=== PATIENT | male | born 1990 | race Two or more races ===

== ENCOUNTER 2020-09-18 18:52 | Emergency (ER) | payer MEDICAID ==
[~2020-09-18] VITALS: Ht 175.3 cm; Wt 69.5 kg
[~2020-09-18 18:52] MED LIST: NO HOME MEDS
[2020-09-18 19:00] VITALS: BP 122/80
[2020-09-18] MEDS ORDERED: HYDR-3686 PO (19:41)
[2020-09-18] MEDS ORDERED: ONDA4TAB6 PO (19:41)
[2020-09-18] MEDS ORDERED: CLON-529 PO (19:41)
[2020-09-18] MEDS ORDERED: DICY10CA88 PO (19:41)
== END 2020-09-18 19:59 | disposition home or self-care (01) ==
LOC: ER 18:53
DX: F15.10 Other stimulant abuse, uncomplicated (principal); M79.641 Pain in right hand; F11.10 Opioid abuse, uncomplicated; Z79.899 Other long term (current) drug therapy
CPT/HCPCS: 73130; 99283

== ENCOUNTER 2021-08-18 02:05 | Emergency (ER) | payer MEDICAID ==
[~2021-08-18] VITALS: Ht 175.3 cm; Wt 65.0 kg
[~2021-08-18 02:05] MED LIST changes: +CLON-529 PO; +DICY10CA88 PO; +ONDA4TAB6 PO
[2021-08-18 02:11] VITALS: BP 131/89
[2021-08-18] MEDS ORDERED: CEPH-585 PO (04:09)
[2021-08-18] MEDS ORDERED: CLIN-97 PO (04:09)
[2021-08-18] MEDS ORDERED: clindamycin 150mg capsule PO ONE (04:10)
== END 2021-08-18 04:33 | disposition home or self-care (01) ==
LOC: ER 02:05
DX: L03.031 Cellulitis of right toe (principal); Z79.899 Other long term (current) drug therapy
CPT/HCPCS: 99283

== ENCOUNTER 2021-11-27 19:34 | Emergency (ER) | payer MEDICAID ==
[~2021-11-27] VITALS: Ht 175.3 cm; Wt 78.8 kg
[~2021-11-27 19:34] MED LIST changes: +CEPH-585 PO; +CLIN-97 PO
[2021-11-27] MEDS ORDERED: colchicine 0.6mg tablet PO ONE (20:30)
--- NOTE | 2021-11-27 20:30 | NUR ---
EVALUATED BY MD IN TRIAGE.
[2021-11-27 20:57] LABS: BASOPHILS # (AUTO) 0.1 X10'3 (0-0.2); BASOPHILS % (AUTO) 1.2 % (0-1); EOSINOPHILS # (AUTO) 0.2 X10'3 (0-0.9); EOSINOPHILS % (AUTO) 1.6 % (0-6); HEMATOCRIT 40.6 % (42.0-52.0); HEMOGLOBIN 13.9 g/dl (14.0-17.9); LYMPHOCYTES # (AUTO) 2.1 X10'3 (1.1-4.8); LYMPHOCYTES % (AUTO) 17.2 % (21-51); MEAN CORPUSCULAR HEMOGLOBIN 29.5 PG (27.0-31.0); MEAN CORPUSCULAR HGB CONC 34.3 g/dL (33.0-36.5); MONOCYTES # (AUTO) 0.9 X10'3 (0-0.9); MONOCYTES % (AUTO) 7.7 % (2-12); NEUTROPHILS # (AUTO) 8.7 X10'3 (1.8-7.7); NEUTROPHILS % (AUTO) 72.3 % (42-75); PLATELET COUNT 324 X10'3 (140-440); RED BLOOD COUNT 4.72 X10'6 (4.70-6.10); RED CELL DISTRIBUTION WIDTH 14.2 % (11.5-14.5)
[2021-11-27] MEDS ORDERED: amox tr/potassium clavulanate 875/125mg TAB PO ONE (21:05)
[2021-11-27] MEDS ORDERED: HYDR-3972 PO (22:04)
[2021-11-27] MEDS ORDERED: AMOX-422 PO (22:04)
== END 2021-11-27 23:59 | disposition home or self-care (01) ==
LOC: ER 19:35
DX: L03.116 Cellulitis of left lower limb (principal); F15.90 Other stimulant use, unspecified, uncomplicated; F11.90 Opioid use, unspecified, uncomplicated; Z79.2 Long term (current) use of antibiotics; Z79.899 Other long term (current) drug therapy
CPT/HCPCS: 36415; 73630; 85025; 99284

== ENCOUNTER 2022-08-31 10:49 | Emergency (ER) | payer MEDICAID ==
[~2022-08-31] VITALS: Ht 175.3 cm; Wt 81.8 kg
[~2022-08-31 10:49] MED LIST changes: -CEPH-585 PO
[2022-08-31 11:02] VITALS: BP 142/93
[2022-08-31] MEDS ORDERED: SULF1TAB49 PO (11:07)
== END 2022-08-31 11:18 | disposition home or self-care (01) ==
LOC: ER 10:50
DX: L73.9 Follicular disorder, unspecified (principal); F15.20 Other stimulant dependence, uncomplicated; F11.10 Opioid abuse, uncomplicated
CPT/HCPCS: 99283

== ENCOUNTER 2022-10-16 15:16 | Emergency (ER) | payer MEDICAID ==
[~2022-10-16] VITALS: Ht 175.3 cm; Wt 77.3 kg
[2022-10-16 16:08] VITALS: BP 133/79
[2022-10-16] MEDS ORDERED: CEPH-585 PO (16:46)
[2022-10-16] MEDS ORDERED: SULF1TAB49 PO (16:46)
== END 2022-10-16 16:55 | disposition home or self-care (01) ==
LOC: ER 15:16
DX: L02.31 Cutaneous abscess of buttock (principal); L03.317 Cellulitis of buttock; F15.10 Other stimulant abuse, uncomplicated; Z79.899 Other long term (current) drug therapy; Z79.1 Long term (current) use of non-steroidal anti-inflammatories (NSAID)
CPT/HCPCS: 99283

== ENCOUNTER → 2024-03-29 | Emergency (ER) | payer MEDICAID ==
[~2024-03-29] VITALS: Ht 175.3 cm; Wt 86.4 kg
[~2024-03-29] MED LIST changes: +HYDR-3686 PO
[2024-03-29 16:32] VITALS: BP 136/81; PULSE 100; RESP 18; TEMP 97.8; O2SAT 98
== END | disposition home or self-care (01) ==
LOC: ER 16:26
DX: F41.9 Anxiety disorder, unspecified (principal); F19.959 Other psychoactive substance use, unspecified with psychoactive substance-induced psychotic disorder, unspecified
CPT/HCPCS: 99283